=== PATIENT | male | born 1985 | race Caucasian/White ===

== ENCOUNTER 2024-01-23 22:16 | Emergency (ER) | payer BC ==
[2024-01-23] MEDS: Ibuprofen 600 MG Tab PO ONE (22:50)
[2024-01-23] MEDS: Amoxicillin 500 MG Cap PO ONE (22:50)
== END 2024-01-23 22:52 | disposition home or self-care (01) ==
LOC: MW.ED 22:16
DX: K02.9 Dental caries, unspecified (principal); I10 Essential (primary) hypertension; Z79.899 Other long term (current) drug therapy
CPT/HCPCS: 99282; A9270